=== PATIENT | female | born 1995 | race Caucasian/White ===

== ENCOUNTER 2018-09-10 23:46 | Emergency (ER) | payer SELFPAY ==
[2018-09-11 00:11] LABS: Bilirubin Negative (Negative); Blood, Urine Moderate (Negative); Clarity Slightly Cloudy (Clear); Glucose, Urine (Dipstick) Negative (Negative); Leukocyte Small (Negative); Nitrite Positive (Negative); Protein, Urine (Dipstick) 100 mg/dL (Neg-Trace); Urobilinogen 0.2 mg/dL (0.2-1.0)
[2018-09-11] MEDS ORDERED: Acetaminophen 500 MG TAB ONE (00:14)
[2018-09-11 00:19] LABS: Bacteria/HPF 4+ HPF (None Seen); Squamous Epithelial 0-3 HPF (0-3)
[2018-09-11] MEDS ORDERED: cefTRIAXone\\ROCEPHIN 1 GM VIAL ONE (00:27)
[2018-09-11] MEDS ORDERED: Sodium Chloride 0.9% 100 ML ONE (00:27)
[2018-09-11] MEDS ORDERED: Sodium Chloride 0.9% 1,000 ML ONE (00:27)
[2018-09-11 00:33] LABS: #Basophils 0.1 thou/uL (0.0-0.2); #Lymphocytes 0.8 thou/uL (1.20-3.40); #Monocytes 0.5 thou/uL (0.11-0.59); #Neutrophils 11.8 thou/uL (1.40-6.50); %Basophils 0.5 % (0.0-1.0); %Eosinophils 0.4 % (0.0-10.0); %Lymphocytes 5.7 % (21.0-51.0); %Monocytes 3.6 % (0.0-10.0); %Neutrophils 89.9 % (42.0-75.0); Hemoglobin 11.5 g/dL (12.0-16.0); Mean Corpuscular HGB CONC 34.2 g/dL (32.0-36.0); Mean Corpuscular Hemoglobin 30.6 pg (27.0-31.0); Mean Corpuscular Volume 89.4 fL (78.0-98.0); Mean Platelet Volume 6.3 fL (7.4-10.4); Platelet Count 196 thou/uL (130-400); RBC Distribution Width 11.7 % (11.5-14.5); Red Blood Cell (RBC) Count 3.78 mill/uL (4.20-5.40); White Blood Cell (WBC) Count 13.1 thou/uL (4.8-10.8)
[2018-09-11 00:41] LABS: BHCG - Serum Negative (NEGATIVE); Pregs Control Background? CLEAR/WHITE (CLR/WHITE); Pregs Control Bar Appear? YES (CONTROL BAR)
[2018-09-11 00:51] LABS: ALT (SGPT) 11 U/L (8-55); AST (SGOT) 14 U/L (5-34); Albumin 3.9 g/dL (3.5-5.0); Alkaline Phosphatase 55 U/L (40-150); Anion Gap 12 mmol/L (10-20); BUN (Urea Nitrogen) 13 mg/dL (7.0-18.7); Bilirubin, Total 0.7 mg/dL (0.2-1.2); Calc. Creatinine Clearance 0 mL/min (70-130); Carbon Dioxide 24 mmol/L (22-29); Chloride 104 mmol/L (98-107); Estimated GFR-MDRD 83; Globulin 2.5 g/dL (2.4-3.5); Glucose 97 mg/dL (70-105); Lipase 13 U/L (8-78); Potassium 3.3 mmol/L (3.5-5.1); Protein, Total 6.4 g/dL (6.0-8.3); Sodium 137 mmol/L (136-145)
--- NOTE | 2018-09-11 10:01 | CT ---
PRELIMINARY REPORT/[facility]/EMERGENTY AFTER-HOURS PROCEDURE CT Abdomen and Pelvis Without Contrast EXAM DATE/TIME: 09/11/2018 12:28 AM CLINICAL HISTORY: 23 years old, female; Pain; Abdominal pain; Flank; Right; Prior surgery; Surgery type: Hysterectomy; Patient HX: Right flank pain; Fever; HX of ovarian cysts TECHNIQUE: Imaging protocol: Axial computed tomography images of the abdomen and pelvis without contrast. Radiation optimization: All CT scans at this facility use at least one of these dose optimization jackie hniques: automated exposure control; mA and/or kV adjustment per patient size (includes targeted exam s where dose is matched to clinical indication); or iterative reconstruction. COMPARISON: No relevant prior studies available. FINDINGS: Lower thorax: There is a trace pericardial effusion or thickening. ABDOMEN: Liver: Normal. Gallbladder and bile ducts: Normal. No calcified stones. No ductal dilation. Pancreas: Normal. No ductal dilation. Spleen: Normal. Adrenals: Normal. Kidneys and ureters: There is mild wall thickening in the right renal pelvis. There is mild infiltrat ion of fat adjacent to the right renal pelvis. Stomach and bowel: There is a large amount of stool in the colon. Appendix: The appendix is distended with stool. PELVIS: Bladder: Unremarkable as visualized. Reproductive: Unremarkable as visualized. ABDOMEN and PELVIS: Intraperitoneal space: Unremarkable. No free fluid or free air. No fluid collection. Bones/joints: No acute fracture. No dislocation. Soft tissues: Unremarkable. Vasculature: Normal. No abdominal aortic aneurysm. Lymph nodes: Normal. No enlarged lymph nodes. IMPRESSION: 1. Findings suspicious for right pyelonephritis vs. recent passage of a calculus. 2. Large amount of stool in the colon. Thank you for allowing us to participate in the care of your patient. Dictated and Authenticated by: Deep Pettit MD 09/11/2018 1:16 AM Central Time ([place] & [place]) FINAL REPORT EMERGENCY AFTER CT STONE PROTOCOL: Date: 09/11/18 FINDINGS/IMPRESSION: I agree with the preliminary report provided by Laina. There is some suggestion of mild prominence of the right renal pelvis with thickening of the reyes of the right renal pelvis may reflect sequelae of an ascending urinary tract infection or possibly rece ntly passed stone. No visible stone is seen along the course of the right ureter. There is a moderate amount of retained stool within the colon. There is mild free fluid in the pelvis. The bladder is de compressed. Would recommend correlation for UTI or pyelonephritis. Contrast enhanced CT examination m ay be helpful for further evaluation. POS: [facility]
== END 2018-09-11 02:01 | disposition home or self-care (01) ==
LOC: MADERS 23:46
DX: A41.9 Sepsis, unspecified organism (principal); N12 Tubulo-interstitial nephritis, not specified as acute or chronic; F41.9 Anxiety disorder, unspecified; F32.9 Major depressive disorder, single episode, unspecified; F17.210 Nicotine dependence, cigarettes, uncomplicated
CPT/HCPCS: 36415; 74176; 80053; 81003; 81015; 83605; 83690; 84703; 85025; 87804; 96361; 96365; J0696; J7050